=== PATIENT | male | born 1945 | race Caucasian/White ===

== ENCOUNTER 2024-01-22 14:35 | Inpatient (IN) | payer MEDICARE ==
[~2024-01-22] VITALS: Ht 182.9 cm; Wt 75.7 kg
[2024-01-22 08:55] VITALS: BP 147/75; TEMP 97.5; O2SAT 99
[2024-01-22] MEDS ORDERED: methylPREDNISolone SOD SUCC 125 MG/2ML VIAL ONE (14:52)
[2024-01-22] MEDS: methylPREDNISolone SOD SUCC 125 MG/2ML VIAL IV ONE (14:56)
[2024-01-22 15:39] LABS: BASOPHILS % (AUTO) 0.4 % (0.0-2.0); EOSINOPHILS # (AUTO) 0.1 K/uL (0.0-0.7); EOSINOPHILS % (AUTO) 1.3 % (0.0-6.0); HEMATOCRIT 39 % (39-51); HEMOGLOBIN 12.6 g/dL (13.5-17.5); LYMPHOCYTES # (AUTO) 0.9 K/uL (0.8-4.8); LYMPHOCYTES % (AUTO) 8.8 % (20.0-44.0); MEAN CORPUSCULAR HEMOGLOBIN 28 PG (26.0-33.0); MEAN CORPUSCULAR HGB CONC 32 g/dl (31.0-36.0); MEAN CORPUSCULAR VOLUME 85 fL (80-96); MONOCYTES # (AUTO) 1.1 K/uL (0.1-1.30); MONOCYTES % (AUTO) 11.2 % (2.0-12.0); NEUTROPHILS # (AUTO) 7.8 K/uL (1.8-8.9); NEUTROPHILS % (AUTO) 78.3 % (43.0-81.0); PLATELET COUNT (AUTO) 277 K/uL (150-450); RED BLOOD CELL COUNT(AUTO) 4.58 MIL/uL (4.5-6.0)
[2024-01-22 16:15] LABS: LACTIC ACID 1.8 mmol/L (0.4-2.0)
[2024-01-22] MEDS ORDERED: DIVA125T32 PO (16:19)
[2024-01-22] MEDS ORDERED: ARFO15VI IH (16:19)
[2024-01-22] MEDS ORDERED: AMLO-212 PO (16:19)
[2024-01-22] MEDS ORDERED: ALBU8.5H8 IH (16:19)
[2024-01-22] MEDS ORDERED: ACET-73 PO (16:19)
[2024-01-22] MEDS ORDERED: OXYC-128 PO (16:20)
[2024-01-22] MEDS ORDERED: RIVA1PAT12 TD (16:20)
[2024-01-22] MEDS ORDERED: QUET400T PO (16:20)
[2024-01-22] MEDS ORDERED: MEMA10TA56 PO (16:20)
[2024-01-22] MEDS ORDERED: OMEP40CA21 PO (16:20)
[2024-01-22] MEDS ORDERED: SIME80TA15 PO (16:20)
[2024-01-22] MEDS ORDERED: LIDO700A30 TP (16:20)
[2024-01-22] MEDS ORDERED: BUDE0.5A4 IH (16:20)
[2024-01-22 16:33] LABS: CALCIUM, SERUM 8.4 mg/dL (8.5-10.1); CARBON DIOXIDE 27 mmol/L (21-32); CHLORIDE 106 mmol/L (98-107); CREATININE 1.5 mg/dL (0.6-1.3); GLUCOSE 135 mg/dL (74-106); POTASSIUM 3.6 mmol/L (3.5-5.1); SODIUM SERUM 144 mmol/L (136-145); UREA NITROGEN, BLOOD 20 mg/dL (7-18)
[2024-01-22 16:35] LABS: ALANINE AMINOTRANSFERASE 16 U/L (12-78); ALBUMIN 3.3 g/dL (3.4-5.0); ALKALINE PHOSPHATASE 113 U/L (46-116); ASPARTATE AMINOTRANSFERASE 5 U/L (15-37); BILIRUBIN,DIRECT 0.1 mg/dL (0.0-0.2); BILIRUBIN,TOTAL 0.3 mg/dL (0.2-1.0); TOTAL PROTEIN, SERUM 7.4 g/dL (6.4-8.2)
[2024-01-22] MEDS: IV NS 0.9% 1,000 ML BAG IV ONE (16:58)
[2024-01-22 20:00] VITALS: BP 147/75; TEMP 97.5; O2SAT 99
[2024-01-22] MEDS ORDERED: ALBUTEROL HALF STRENGTH 1.25 MG/3 ML VIAL.NEB NEB PRN (20:30)
[2024-01-22] MEDS ORDERED: IPRATROPIUM NEB FS 0.5 MG/2.5 ML AMPUL.NEB NEB PRN (20:30)
[2024-01-22] MEDS ORDERED: ACETAMINOPHEN 325 MG TABLET PO PRN (20:30)
[2024-01-22] MEDS ORDERED: MAG HYDROX/AL HYDROX/SIMETH 30 ML UDC PO PRN (20:30)
[2024-01-22] MEDS ORDERED: ONDANSETRON HCL/PF 4 MG/2 ML VIAL IVP PRN (20:30)
[2024-01-22] MEDS: ALBUTEROL HALF STRENGTH 1.25 MG/3 ML VIAL.NEB NEB SCH (20:45)
[2024-01-22] MEDS: IPRATROPIUM NEB FS 0.5 MG/2.5 ML AMPUL.NEB NEB SCH (20:45)
[2024-01-22 20:50] VITALS: O2SAT 92
[2024-01-22 21:05] VITALS: O2SAT 98
[2024-01-22] MEDS: MEMANTINE HCL 5 MG TABLET PO SCH (21:21)
[2024-01-22] MEDS: QUETIAPINE FUMARATE 100 MG TABLET PO SCH (21:21)
[2024-01-22] MEDS: DIVALPROEX SODIUM 125 MG TABLET.DR PO SCH (21:21)
[2024-01-22] MEDS: methylPREDNISolone SOD SUCC 40 MG/ML VIAL IV SCH (21:25)
[2024-01-22] MEDS: ENOXAPARIN SODIUM 40 MG/0.4 ML DISP.SYRIN SQ SCH (21:28)
[2024-01-23] VITALS (14 sets, daily range): BP systolic 107–142; BP diastolic 59–78; TEMP 97.3–97.7; O2SAT 93–98
[2024-01-23 06:46] LABS: BASOPHILS % (AUTO) 0.1 % (0.0-2.0); HEMATOCRIT 34 % (39-51); HEMOGLOBIN 11.1 g/dL (13.5-17.5); LYMPHOCYTES # (AUTO) 0.5 K/uL (0.8-4.8); LYMPHOCYTES % (AUTO) 4.5 % (20.0-44.0); MEAN CORPUSCULAR HEMOGLOBIN 28 PG (26.0-33.0); MEAN CORPUSCULAR HGB CONC 33 g/dl (31.0-36.0); MEAN CORPUSCULAR VOLUME 86 fL (80-96); MONOCYTES # (AUTO) 0.4 K/uL (0.1-1.30); MONOCYTES % (AUTO) 3.9 % (2.0-12.0); NEUTROPHILS # (AUTO) 9.8 K/uL (1.8-8.9); NEUTROPHILS % (AUTO) 91.5 % (43.0-81.0); PLATELET COUNT (AUTO) 262 K/uL (150-450); RED BLOOD CELL COUNT(AUTO) 3.99 MIL/uL (4.5-6.0); WHITE BLOOD COUNT (AUTO) 10.7 K/uL (4.3-11.0)
[2024-01-23 07:16] LABS: CALCIUM, SERUM 8.6 mg/dL (8.5-10.1); CARBON DIOXIDE 24 mmol/L (21-32); CHLORIDE 106 mmol/L (98-107); CREATININE 1.3 mg/dL (0.6-1.3); GLUCOSE 147 mg/dL (74-106); MAGNESIUM 1.9 mg/dL (1.8-2.4); POTASSIUM 4.4 mmol/L (3.5-5.1); SODIUM SERUM 142 mmol/L (136-145); UREA NITROGEN, BLOOD 25 mg/dL (7-18)
[2024-01-23] MEDS: PANTOPRAZOLE 40 MG TABLET.DR PO SCH (07:52)
[2024-01-23] MEDS: AMLODIPINE BESYLATE 5 MG TABLET PO SCH (08:43)
[2024-01-23] MEDS: RIVASTIGMINE TARTRATE 4.6 MG PATCH.TD24 TD SCH (08:59)
[2024-01-23] MEDS: SULFAMETH/TRIMETH 800/160 MG 1 UDTAB TABLET PO SCH (09:43)
[2024-01-23 10:48] LABS: ABG OXYGEN SATURATION 96.8 % (92.0-98.5); ABG PCO2 35.7 mmHg (35.0-45.0); ABG PH 7.426 (7.340-7.440); ABG PO2 91.4 mmHg (75.0-100.0); ABG TOTAL HEMOGLOBIN 12.3 G/dL (14.0-18.0); COHb 0.4 % (0.5-1.5); MetHb 0.3 % (0.0-1.5); O2Hb 96.1 % (94.0-97.0); SITE, ABG Right Radial; VENT MODE, BG 2lpm nc
[2024-01-23] MEDS: ACETYLCYSTEINE 20% SOLN 800 MG/4 ML VIAL NEB SCH (14:44)
[2024-01-23] MEDS: K PHOS NEUTRAL 250 MG TABLET PO ONE (17:33)
[2024-01-24] VITALS (8 sets, daily range): BP systolic 122–124; BP diastolic 57–70; TEMP 98.5; O2SAT 93–97
[2024-01-24 06:29] LABS: BASOPHILS % (AUTO) 0.1 % (0.0-2.0); HEMATOCRIT 35 % (39-51); HEMOGLOBIN 11.3 g/dL (13.5-17.5); LYMPHOCYTES # (AUTO) 0.7 K/uL (0.8-4.8); LYMPHOCYTES % (AUTO) 4.1 % (20.0-44.0); MEAN CORPUSCULAR HEMOGLOBIN 28 PG (26.0-33.0); MEAN CORPUSCULAR HGB CONC 33 g/dl (31.0-36.0); MEAN CORPUSCULAR VOLUME 86 fL (80-96); MONOCYTES # (AUTO) 1.4 K/uL (0.1-1.30); NEUTROPHILS # (AUTO) 15.8 K/uL (1.8-8.9); NEUTROPHILS % (AUTO) 87.8 % (43.0-81.0); PLATELET COUNT (AUTO) 285 K/uL (150-450); RED BLOOD CELL COUNT(AUTO) 4.06 MIL/uL (4.5-6.0); RED CELL DISTRIBUTION WIDTH 16.4 % (11.5-15.0)
[2024-01-24 06:45] LABS: CALCIUM, SERUM 8.8 mg/dL (8.5-10.1); CARBON DIOXIDE 25 mmol/L (21-32); CHLORIDE 108 mmol/L (98-107); CREATININE 1.3 mg/dL (0.6-1.3); GLUCOSE 131 mg/dL (74-106); MAGNESIUM 2.2 mg/dL (1.8-2.4); POTASSIUM 4.6 mmol/L (3.5-5.1); SODIUM SERUM 143 mmol/L (136-145); UREA NITROGEN, BLOOD 35 mg/dL (7-18)
[2024-01-24] MEDS ORDERED: ALBU8.5H8 INH (14:39)
[2024-01-24] MEDS ORDERED: SULF1TAB48 PO (14:39)
[2024-01-24] MEDS ORDERED: FLUT1BLS6 IH (14:39)
== END 2024-01-24 16:00 | disposition home or self-care (01) | DRG 190 ==
LOC: ER 14:38 → TELE 17:42 → MED 01-24 11:18
PROVIDERS: ADMIT Nurse Practitioner Acute Care; ATTEND Nurse Practitioner Acute Care
DX: J44.1 Chronic obstructive pulmonary disease with (acute) exacerbation (principal); N17.0 Acute kidney failure with tubular necrosis; E44.1 Mild protein-calorie malnutrition; Z85.118 Personal history of other malignant neoplasm of bronchus and lung; Z87.891 Personal history of nicotine dependence; E86.0 Dehydration; E88.09 Other disorders of plasma-protein metabolism, not elsewhere classified; I10 Essential (primary) hypertension; F09 Unspecified mental disorder due to known physiological condition; Z68.22 Body mass index [BMI] 22.0-22.9, adult; J43.9 Emphysema, unspecified
CPT/HCPCS: 36415; 36600; 71045-TC; 80048-TC; 80076-TC; 82803-TC; 83605-TC; 83735-TC; 83880; 84100-TC; 85025-TC; 85378-TC; 93307-TC; 93970-TC; 94760-TC; 94762-TC; 94799-TC; 97110-TC; 97116-TC; 97530-TC; A4223; G0378; J1650; J2919; J7040